=== PATIENT | female | born 1955 | race Caucasian/White ===

== ENCOUNTER 2018-06-15 01:24 | Outpatient (CLI) | payer BC, SELFPAY ==
[2018-06-15 09:19] LABS: Anion Gap 10.4 mmol/L (3-11); BUN 19 mg/dL (7-18); CO2 27.6 mmol/L (21.0-32.0); CREATININE 0.85 mg/dL (0.55-1.02); Calcium 9.1 mg/dL (8.5-10.1); Chloride 103 mmol/L (98-107); Cholesterol 146 mg/dL (50-200); Glucose 90 mg/dL (70-100); HDL Cholesterol 41 mg/dL (40-60); LDL CHOLESTEROL 71 mg/dL (<100); Potassium 3.6 mmol/L (3.5-5.1); Sodium 141 mmol/L (136-145); Triglyceride 215 mg/dL (30-150)
== END 2018-06-15 01:44 ==
PROVIDERS: PCP Family Medicine; Visit Provider Nurse Practitioner Family
DX: E78.5 Hyperlipidemia, unspecified (principal); I10 Essential (primary) hypertension; Z12.11 Encounter for screening for malignant neoplasm of colon
CPT/HCPCS: 36415; 80048; 80061; 83721

== ENCOUNTER 2018-10-18 08:58 | Emergency (ER) | payer BC, SELFPAY ==
[2018-10-18] VITALS (20 sets, daily range): BP systolic 101–136; BP diastolic 69–87; PULSE 58–80; RESP 11–24; TEMP 36.5–37.2; O2SAT 91–96
--- NOTE | 2018-10-18 09:32 | ED.GENADUL_ITS ---
Discharge Plan Disposition Patient Disposition: HOME Condition: Stable Discharge Details Chief Complaint: RespSymp Clinical Impression: Influenza A Primary Care Provider: Roge Baever ED Provider: Tina Melgoza Home Meds and New Rx's Prescriptions: Continued ibuprofen 200 MG capsule 200 mg PO HS PRNRF: 0 Atorvastatin Calcium 20 MG tablet 20 mg PO DAILY Qty: 90 RF: 3 lisinopril-hydrochlorothiazide 1 EACH tablet 1 tab PO DAILY Qty: 90 RF: 3 atenolol 50 MG tablet 50 mg PO DAILY Qty: 90 RF: 3 acetaminophen [Tylenol Extra Strength] 500 mg Tablet 500 mg PO PRN PRNRF: 0 Discharge Instructions Instructions: Albuterol (By mouth), Influenza (ED) Additional Instructions: Please return immediately to the emergency department if you develop any new or worsening symptoms or if you become otherwise concerned. It is extremely important that you make an appointment to be seen as soon as possible and follow-up this visit by your primary care doctor. Discharge Data Discharge Date/Time-TO BE ENTERED AT DEPARTURE: 10/18/18 12:41 Medical Decision Making Lulu Jernigan is a 63-year-old woman with history of hypertension, rheumatoid arthritis not currently being treated who presented to the emergency department with 1 week of cough, subjective fevers, headaches, and generalized body aches. On exam patient is well and nontoxic appearing. Cardiopulmonary exam is benign. Concern for influenza versus pneumonia versus metabolic/lyte derangement versus less likely occult ACS, other. Exam/history is not consistent with pulmonary embolism, sepsis, meningitis, subarachnoid hemorrhage, acute aortic etiology. Plan for EKG, screening labs, chest x-ray, flu swab, telemetry. Plan for 1 troponin given duration of symptoms, unchanged without chest pain or shortness of breath. Will monitor and reassess. Flu swab positive. Tamiflu not indicated at this time given duration of symptoms. Chest x-ray visualized and interpreted by myself in conjunction with radiology: No acute process. EKG shows sinus rhythm at 62 with normal axis, no acute ischemic process, nondiagnostic EKG. Prior to discharge patient noted to have O2 saturations 92-95% with good waveform. Patient continues to report no shortness of breath. Lungs are clear to auscultation. Plan for DuoNeb. O2 sat improved to 96% after DuoNeb. Plan for discharge with albuterol inhaler. I did have a lengthy discussion with the patient regarding return to emergency room precautions, home care, and importance of outpatient follow-up with her PCP. Patient verbalizes understanding of plan and is amenable. All questions were answered. Medical Records Medical records reviewed: Yes I reviewed the patient's medical records. Lab Data Lab results reviewed: Yes I reviewed the patient's lab results. 10/18/18 10:20 Nasopharynx Influenza Types A,B Antigen - Final Laboratory Tests Range/Units 10/18/18 10/18/18 10/18/18 10:25 10:40 10:40 WBC (4.4-10.8) k/cumm 3.52 L RBC (4.00-5.20) m/cumm 4.84 Hgb (12.0-15.5) g/dL 14.2 Hct (36.0-46.0) % 41.9 MCV (80-95) fL 86.6 MCH (27.0-33.0) pg 29.3 MCHC (32.0-36.0) g/dL 33.9 RDW (11.7-14.6) % 13.3 Plt Count (130-400) x1000/uL 163 MPV (8.0-11.0) fL 10.3 Immature Gran % 0.0 Neutrophils % 45.7 Lymphocytes % 41.5 Monocytes % 11.9 Eosinophils % 0.6 Basophils % 0.3 Absolute Neutrophils (1.2-6.7) k/cumm 1.61 Absolute Lymphocytes (1.2-3.4) k/cumm 1.46 Absolute Monocytes (0.11-0.7) k/cumm 0.42 Absolute Eosinophils (0.0-0.7) k/cumm 0.02 Absolute Basophils (0.0-0.2) k/cumm 0.01 Sodium (136-145) mmol/L 138 Potassium (3.5-5.1) mmol/L 3.3 L Chloride (98-107) mmol/L 101 Carbon Dioxide (21.0-32.0) mmol/L 29.0 Anion Gap (3-11) mmol/L 8.0 BUN (7-18) mg/dL 13 Creatinine (0.55-1.02) mg/dL 0.93 Estimated GFR/1.73 m2 (mL/min/1.73m2) >= 60.00 Glucose (70-100) mg/dL 99 Calcium (8.5-10.1) mg/dL 8.7 Total Bilirubin (0.2-1.0) mg/dL 0.4 AST (15-37) U/L 36 ALT (12-78) U/L 42 Alkaline Phosphatase (46-116) U/L 107 Troponin I (0.00-0.06) ng/mL < 0.02 Total Protein (6.4-8.2) g/dL 7.8 Albumin (3.4-5.0) g/dL 3.5 Urine Color (Yellow) Yellow Urine Clarity Clear Urine pH (5-8) 6.5 Ur Specific [place] (1.005-1.025) 1.020 Urine Protein (Negative) mg/dL Negative Urine Ketones (Negative) mg/dL Negative Urine Blood (Negative) Negative Urine Nitrite (Negative) Negative Urine Bilirubin (Negative) Negative Urine Urobilinogen (Up TO 0.2) EU/dL 0.2 Ur Leukocyte Esterase (Negative) Negative Urine Glucose (Negative) mg/dL Negative ECG Data Attestation: I personally reviewed and interpreted this ECG (s) as follows: Interpretation: See above HPI General Mode of arrival: ambulatory . Date/Time Provider Initiated Documentation: 10/18/18 09:32 . Limitations to Documentation: no limitations . Information obtained by: patient, RN notes reviewed and old records reviewed . HPI Narrative: Lulu Jernigan is a 63-year-old woman with history of hypertension, rheumatoid arthritis not currently on any medication for this presenting to the emergency department with cough, headache, generalized body aches. Patient reports that for 7 days she has had generalized body aches, nasal congestion, intermittent headaches, and cough. She has also had subjective fevers, although she has not measured her temperature at home and felt febrile when she came in today with normal temp at triage. She denies any focal pain, but does report generalized joint and muscle pain that is migratory and intermittent. She denies chest pain, abdominal pain. Headache was gradual in onset 7 days ago and has been coming and going. No current headache. She reports fatigue, denies vomiting or diarrhea. Has been eating and drinking as usual at home. Her who lives with her has had similar symptoms over the past few days. No recent travel. No rash. Related Data Home Medications Medication Instructions Recorded Confirmed ibuprofen 200 mg PO HS PRN tab-cap 05/16/14 10/18/18 atenolol 50 mg PO DAILY #90 tab 01/01/18 10/18/18 lisinopril-hydrochlorothiazide 1 tab PO DAILY #90 tab 01/01/18 10/18/18 acetaminophen [Tylenol Extra 500 mg PO PRN PRN 10/18/18 10/18/18 Strength] Previous Rx's Medication Instructions Recorded atenolol 50 mg PO DAILY #90 tab 01/01/18 lisinopril-hydrochlorothiazide 1 tab PO DAILY #90 tab 01/01/18 Allergies Allergy/AdvReac Type Severity Reaction Status Date / Time No Known Drug Allergies Allergy Unverified 10/18/18 09:11 General Stated Complaint: RespSymp MAHENDRA: 3 Review of Systems Review of Systems Constitutional: Reports fevers Eyes: denies eye pain ENT: denies facial pain, dental pain, sore throat Cardiovascular: denies chest pain, edema Respiratory: denies SOB, reports cough GI: denies abdominal pain, vomiting, diarrhea : denies flank pain MSK: denies back pain, neck pain, reports generalized arthralgias and myalgias Skin: denies rash Neuro: denies numbness, weakness, reports intermittent headaches PFSH Medical History Obesity (BMI 30-39.9) (Chronic 10/20/07) Hyperlipidemia, unspecified (Chronic 09/02/95) Essential hypertension (Chronic 11/30/97) Adult BMI > 30 Fibrocystic breast changes HLD (hyperlipidemia) HTN (hypertension) History of HPV infection Postmenopausal Social History Smoking/Tobacco Use Status: Former Tobacco Use Quit Date: 12/10/06 Alcohol Intake: current Alcohol Intake frequency: other Alcohol type: beer Substance use type: does not use Adopted: No Caregiver/Support person: No Foster care: No Number of Children: 1 current occupation: Emergency dispatcher Pets and animals: Yes Pets and animals: dog(s), bird(s) and farm animals Sexually active: No Current gender identity: female What type of physical activity do you participate in: walking Duration: 30-45 minutes/day Frequency: 3-4 times per week Seatbelt use: always Water heater temp set <120 deg: Yes Working smoke detector in home: Yes Fire extinguisher in home: Yes Carbon monox detector in home: Yes Firearms in home: Yes Firearms unloaded and locked: Yes Do you feel safe at home: Yes Do you feel safe in your relationship?: Yes Exam Narrative Exam Narrative: Constitutional: well and [id number], pleasant, conversing normally HENT: head atraumatic/normocephalic/normal inspection, mucous membranes moist Eyes: conjunctiva normal, sclera normal, pupils 3mm b/l Neck: no stridor, normal ROM, trachea midline Chest: normal inspection Resp: normal work of breathing, LCTAB Cardio: normal rate, normal rhythm, no murmur appreciated Back: normal inspection, no rash Skin: warm, dry, normal color, no rash Neuro: alert, not altered, grossly non-focal, normal tone Ext: no edema, no posterior calf tenderness to palpation Psych: normal mood, normal affect, normal behavior Course Vital Signs Temperature 36.5 C 10/18/18 09:05 Pulse 70 10/18/18 09:05 Respiratory Rate 16 10/18/18 09:05 Blood Pressure 132/80 10/18/18 09:05 Pulse Oximetry 94 L 10/18/18 09:05 Temperature 36.5 C 10/18/18 09:05 Temperature Source Skin 10/18/18 09:05 Pulse 70 10/18/18 09:05 Respiratory Rate 16 10/18/18 09:05 Respiratory Effort 10/18/18 09:16 Respiratory Depth Normal 10/18/18 09:16 Blood Pressure 132/80 10/18/18 09:05 Blood Pressure Position Sitting 10/18/18 09:05 Pulse Oximetry 94 L 10/18/18 09:05 Oxygen Delivery Method Room Air 10/18/18 09:05 Oxygen Flow Rate 0 10/18/18 09:05 Pain Level 5 10/18/18 09:05
[2018-10-18 10:32] LABS: Bilirubin Negative (Negative); Blood Negative (Negative); Clarity Clear; Glucose Negative (Negative); Ketones Negative (Negative); Leukocyte Esterase Negative (Negative); Nitrite Negative (Negative); Urobilinogen 0.2 EU/dL (Up TO 0.2); pH 6.5 (5-8)
[2018-10-18] MEDS: Normal Saline Flush 10 ML SYR IVP (10:40)
[2018-10-18 10:52] LABS: Absolute Basophil Count 0.01 k/cumm (0.0-0.2); Absolute Eosinophil Count 0.02 k/cumm (0.0-0.7); Absolute Lymphocyte Count 1.46 k/cumm (1.2-3.4); Absolute Monocyte Count 0.42 k/cumm (0.11-0.7); Absolute Neutrophil Count 1.61 k/cumm (1.2-6.7); Basophils % 0.3; Eosinophils % 0.6; HCT 41.9 % (36.0-46.0); HGB 14.2 g/dL (12.0-15.5); Lymphocytes % 41.5; Mean Corp. HGB Concentration 33.9 g/dL (32.0-36.0); Mean Corpuscular Hemoglobin 29.3 pg (27.0-33.0); Mean Corpuscular Volume 86.6 fL (80-95); Mean Platelet Volume 10.3 fL (8.0-11.0); Monocytes % 11.9; Neutrophils % 45.7; Platelet Count 163 x1000/uL (130-400); RBC 4.84 m/cumm (4.00-5.20); RBC Distribution Width 13.3 % (11.7-14.6); White Blood Cell Count 3.52 k/cumm (4.4-10.8)
--- NOTE | 2018-10-18 11:03 | DI.RAD_ITS ---
SYMPTOMS/DIAGNOSIS: COUGH CHEST X-RAY, PA AND LATERAL: Comparison is 09/29/1997. The heart is normal in size. The lungs are clear. The mediastinal structures and pleura appear intact. IMPRESSION: Normal chest.
[2018-10-18 11:20] LABS: ALT 42 U/L (12-78); AST 36 U/L (15-37); Albumin 3.5 g/dL (3.4-5.0); Alkaline Phosphatase 107 U/L (46-116); BUN 13 mg/dL (7-18); Bilirubin, Total 0.4 mg/dL (0.2-1.0); CREATININE 0.93 mg/dL (0.55-1.02); Calcium 8.7 mg/dL (8.5-10.1); Chloride 101 mmol/L (98-107); Glucose 99 mg/dL (70-100); Potassium 3.3 mmol/L (3.5-5.1); Sodium 138 mmol/L (136-145); Total Protein 7.8 g/dL (6.4-8.2)
[2018-10-18 11:24] LABS: Troponin I < 0.02 ng/mL (0.00-0.06)
[2018-10-18] MEDS: Albuterol/Ipratropium 3 ML UPD VIAL UPD (11:45)
[2018-10-18] MEDS: Albuterol HFA 8 GM 60 PUFF INH IH (12:40)
== END 2018-10-18 12:41 | disposition home or self-care (01) ==
PROVIDERS: Emergency Provider Student in an Organized Health Care Education/Training Program; PCP Family Medicine
DX: J10.1 Influenza due to other identified influenza virus with other respiratory manifestations (principal); I10 Essential (primary) hypertension
CPT/HCPCS: 36415; 80053; 87449; 93005; 94640; 99285; 71046; 81003; 84484; 85025; 93010; 99283; J7620

== ENCOUNTER 2019-01-25 16:42 | Outpatient (CLI) | payer BC, SELFPAY | END 2019-01-25 17:02 | PROVIDERS: PCP Nurse Practitioner Family; Visit Provider Nurse Practitioner Family | DX: Z12.11 Encounter for screening for malignant neoplasm of colon (principal) | CPT/HCPCS: 82274 ==

== ENCOUNTER 2019-12-16 11:51 | Outpatient (REF) | payer BC, SELFPAY ==
[2019-12-16 19:00] LABS: Anion Gap 8.3 mmol/L (3-11); BUN 21 mg/dL (7-18); CO2 30.7 mmol/L (21.0-32.0); CREATININE 0.88 mg/dL (0.55-1.02); Calcium 8.8 mg/dL (8.5-10.1); Calculated LDL 52 mg/dL (<100); Chloride 104 mmol/L (98-107); Cholesterol 130 mg/dL (<200); Glucose 82 mg/dL (74-106); HDL Cholesterol 50 mg/dL (40-60); Potassium 4.2 mmol/L (3.5-5.1); Sodium 143 mmol/L (136-145); Triglyceride 141 mg/dL (<150)
[2019-12-16 19:02] LABS: Hemoglobin A1C 5.7 % (3.8-5.6)
== END 2019-12-16 12:11 ==
LOC: LBN 11:51
PROVIDERS: PCP Nurse Practitioner Family; Visit Provider Nurse Practitioner Family
DX: I10 Essential (primary) hypertension (principal); E78.5 Hyperlipidemia, unspecified; E66.9 Obesity, unspecified; Z83.3 Family history of diabetes mellitus
CPT/HCPCS: 80048; 80061; 83036

== ENCOUNTER 2019-12-22 03:00 | Outpatient (CLI) | payer BC, SELFPAY ==
--- NOTE | 2019-12-22 14:26 | DI.DEXA_ITS ---
EXAM: XR DEXA BONE DENSITY W/WO SULEIMAN CLINICAL HISTORY: screening for osteoporosis,Z13.820 TECHNIQUE: COMPARISON: No exams were available for comparison FINDINGS: Lateral Spine Image: Unremarkable. No compression deformities identified. Left hip: Total T-Score: -1.4 Total Z-Score: -0.2 T- and Z-scores: Findings consistent with osteopenia. Lumbar Spine: Total T-Score: -1.0 Total Z-Score: 0.8 T- and Z-scores: Within normal limits. IMPRESSION: No evidence of osteoporosis.
--- NOTE | 2019-12-22 14:35 | DI.MAMMO_ITS ---
EXAM: MG MAMMO SCREENING CLINICAL HISTORY: screening,Z12.39 TECHNIQUE: Bilateral full field digital CC and MLO mammographic images were obtained with 3D tomosyn thesis and utilizing computer aided detection (CAD). COMPARISON: Available for comparison. FINDINGS: Masses/Architectural Distortion: None seen. Microcalcifications: No suspicious pleomorphic-type are seen. Skin Thickening/Nipple Retraction: None. IMPRESSION: 1. No significant interval change with no specific features of malignancy noted. 2. Unless there is more urgent need, screening mammography is recommended, as per [place] [employer] guidelines. BI-RADS Category 1 - Negative Breast Density - Category B - Scattered areas of fibroglandular density A negative radiographic report should not delay biopsy if a dominant or clinically suspicious mass is present. Up to ten percent of cancers are not identified on mammography. A negative report may reinforce clinical impression. Adenosis and dense breasts may obscure an underlying neoplasm. False positive reports average 6 to 10%. Patient will receive a letter notifying them of these results.
== END 2019-12-22 03:20 ==
PROVIDERS: PCP Nurse Practitioner Family; Visit Provider Nurse Practitioner Family
DX: Z12.31 Encounter for screening mammogram for malignant neoplasm of breast (principal); M85.88 Other specified disorders of bone density and structure, other site
CPT/HCPCS: 77063; 77067; 77080

== ENCOUNTER 2021-06-06 02:09 | Outpatient (CLI) | payer MEDICARE, SELFPAY ==
--- NOTE | 2021-06-06 09:00 | DI.MAMMO_ITS ---
Exam(s) MAMMO SCREENING EXAM: MAMMO SCREENING CLINICAL HISTORY: screening,Z12.39. TECHNIQUE: Bilateral full field digital CC and MLO mammographic images were obtained with 3D tomosyn thesis and utilizing computer aided detection (CAD). COMPARISON: Prior mammograms dating back to 2011, the most recent being December 2019. FINDINGS: There has been no significant change in appearance and distribution of the fibroglandular tissue whic h is mostly fatty. There are no new spiculated masses nor malignant appearing microcalcification groups. Few small benign-appearing nodules bilaterally are unchanged. Numerous benign-appearing microcalcifi cations in both breasts are also unchanged. There is no significant architectural distortion nor skin thickening-retraction. IMPRESSION: Stable benign findings. No radiographic evidence of malignancy. BI-RADS Category 2 - Benign Findings Breast Density - Category A - Almost entirely fatty Breast density Category C or D implies that the patient has dense breast tissue. Dense breast tissue can make it harder to find cancer on a mammogram. Dense breast tissue is also associated with an incr eased risk of breast cancer. This information about the result of the mammogram report was provided to the patient to raise their awareness. Use this report when you speak with the patient about their risks for breast cancer, which includes their family history. At that time, you may recommend additional screening tests (Ultrasoun d or MRI) as these tests may add significant information. A negative radiographic report should not delay biopsy if a dominant or clinically suspicious mass is present. Up to ten percent of cancers are not identified on mammography. A negative report may reinforce clinical impression. Adenosis and dense breasts may obscure an underlying neoplasm. False positive reports average 6 to 10%. Patient will receive a letter notifying them of these results.
== END 2021-06-06 02:29 ==
PROVIDERS: PCP Nurse Practitioner Family; Visit Provider Nurse Practitioner Family
DX: Z12.31 Encounter for screening mammogram for malignant neoplasm of breast (principal)
CPT/HCPCS: 77063; 77067

== ENCOUNTER 2021-06-06 02:53 | Outpatient (CLI) | payer MEDICARE, SELFPAY ==
[2021-06-06 14:28] LABS: Hemoglobin A1C 5.5 % (<5.7)
[2021-06-06 15:54] LABS: Anion Gap 11.9 mmol/L (3-11); BUN 17 mg/dL (7-18); CO2 27.1 mmol/L (21.0-32.0); CREATININE 0.9 mg/dL (0.55-1.02); Calcium 9.2 mg/dL (8.5-10.1); Calculated LDL 77 mg/dL (<100); Chloride 104 mmol/L (98-107); Cholesterol 162 mg/dL (<200); Glucose 82 mg/dL (74-106); HDL Cholesterol 50 mg/dL (40-60); Potassium 3.9 mmol/L (3.5-5.1); Sodium 143 mmol/L (136-145); Triglyceride 177 mg/dL (<150)
== END 2021-06-06 02:54 | disposition home or self-care (01) ==
LOC: LBO 02:53
PROVIDERS: PCP Nurse Practitioner Family; Visit Provider Nurse Practitioner Family
DX: I10 Essential (primary) hypertension (principal); R73.01 Impaired fasting glucose; E78.5 Hyperlipidemia, unspecified
CPT/HCPCS: 36415; 80048; 80061; 83036

== ENCOUNTER 2022-05-01 04:17 | Outpatient (CLI) | payer MEDICARE, SELFPAY ==
[2022-05-01 08:38] LABS: Hemoglobin A1C 5.5 % (<5.7)
[2022-05-01 09:14] LABS: Anion Gap 7.3 mmol/L (3-11); BUN 21 mg/dL (7-18); CO2 29.7 mmol/L (21.0-32.0); CREATININE 0.8 mg/dL (0.55-1.02); Calculated LDL 73 mg/dL (<100); Chloride 104 mmol/L (98-107); Cholesterol 147 mg/dL (<200); Estimated GFR 80.21 (mL/min/1.73m2); Glucose 90 mg/dL (74-106); HDL Cholesterol 53 mg/dL (40-60); Potassium 3.6 mmol/L (3.5-5.1); Sodium 141 mmol/L (136-145); Triglyceride 105 mg/dL (<150)
== END 2022-05-01 04:18 | disposition home or self-care (01) ==
LOC: LBO 04:18
PROVIDERS: PCP Nurse Practitioner Family; Visit Provider Nurse Practitioner Family
DX: E78.5 Hyperlipidemia, unspecified (principal); I10 Essential (primary) hypertension; R73.01 Impaired fasting glucose
CPT/HCPCS: 36415; 80048; 80061; 83036

== ENCOUNTER → 2022-06-12 02:37 | Outpatient (CLI) | payer MEDICARE, SELFPAY ==
--- NOTE | 2022-06-12 08:45 | DI.MAMMO_ITS ---
Exam(s) MAMMO SCREENING EXAM: MAMMO SCREENING 3B CLINICAL HISTORY: screening,Z12.39 TECHNIQUE: Bilateral full field digital CC and MLO mammographic images were obtained with 3D tomosyn thesis and utilizing computer aided detection (CAD). COMPARISON: Available for comparison. FINDINGS: Masses/Architectural Distortion: None seen. Microcalcifications: No suspicious pleomorphic-type are seen. Skin Thickening/Nipple Retraction: None. IMPRESSION: 1. No significant interval change with no specific features of malignancy noted. 2. Unless there is more urgent need, screening mammography is recommended, as per [place] [employer] guidelines. BI-RADS Category 1 - Negative Breast Density - Category B - Scattered areas of fibroglandular density Breast density category C or D implies that the patient has dense breast tissue. Dense breast tissue is very common and is not abnormal but dense breast tissue can make it harder to find cancer on a ma mmogram. Also, dense breast tissue may increase their breast cancer risk. This information about the result of the mammogram report was provided to the patient to raise their awareness. Use this report when you speak with the patient about their risks for breast cancer, which includes their family hist ory. At that time, you may recommend for more screening tests (Ultrasound or MRI) as they might be us eful based on their risk. A negative radiographic report should not delay biopsy if a dominant or clinically suspicious mass is present. Up to ten percent of cancers are not identified on mammography. A negative report may reinforce clinical impression. Adenosis and dense breasts may obscure an underlying neoplasm. False positive reports average 6 to 10%. Patient will receive a letter notifying them of these results.
== END ==
PROVIDERS: PCP Nurse Practitioner Family; Visit Provider Nurse Practitioner Family
DX: Z12.31 Encounter for screening mammogram for malignant neoplasm of breast (principal)
CPT/HCPCS: 77063; 77067

== ENCOUNTER 2023-05-25 03:44 | Outpatient (CLI) | payer MEDICARE, SELFPAY ==
[2023-05-25 09:02] LABS: Anion Gap 7.8 mmol/L (3-11); BUN 18 mg/dL (7-18); CO2 28.2 mmol/L (21.0-32.0); CREATININE 0.9 mg/dL (0.55-1.02); Calcium 9.5 mg/dL (8.5-10.1); Calculated LDL 64 mg/dL (<100); Chloride 105 mmol/L (98-107); Cholesterol 139 mg/dL (<200); Glucose 96 mg/dL (74-106); HDL Cholesterol 52 mg/dL (40-60); Potassium 3.8 mmol/L (3.5-5.1); Sodium 141 mmol/L (136-145); Triglyceride 119 mg/dL (<150)
== END 2023-05-25 03:45 | disposition home or self-care (01) ==
PROVIDERS: Absent Provider Nurse Practitioner Family; PCP Nurse Practitioner Family; Visit Provider Nurse Practitioner Family
DX: I10 Essential (primary) hypertension (principal); Z13.1 Encounter for screening for diabetes mellitus; E78.5 Hyperlipidemia, unspecified
CPT/HCPCS: 36415; 80048; 80061

== ENCOUNTER → 2023-06-19 01:34 | Outpatient (CLI) | payer MEDICARE, SELFPAY ==
--- NOTE | 2023-06-19 13:10 | DI.MAMMO_ITS ---
Exam(s) MAMMO SCREENING EXAM: MAMMO SCREENING CLINICAL HISTORY: screening,z12.39. TECHNIQUE: Bilateral full field digital CC and MLO mammographic images were obtained with 3D tomosyn thesis and utilizing computer aided detection (CAD). COMPARISON: Prior mammograms were reviewed. FINDINGS: There has been no significant change in the appearance and distribution of the fibroglandular tissue. Scattered benign-appearing microcalcifications are again noted in both breasts. There are no new spiculated masses nor malignant appearing microcalcification groups. There is no significant architectural distortion nor skin thickening-retraction. IMPRESSION: No radiographic evidence of malignancy. BI-RADS Category 1 - Negative Breast Density - Category A - Almost entirely fatty Breast density Category C or D implies that the patient has dense breast tissue. Dense breast tissue can make it harder to find cancer on a mammogram. Dense breast tissue is also associated with an incr eased risk of breast cancer. This information about the result of the mammogram report was provided to the patient to raise their awareness. Use this report when you speak with the patient about their risks for breast cancer, which includes their family history. At that time, you may recommend additional screening tests (Ultrasoun d or MRI) as these tests may add significant information. A negative radiographic report should not delay biopsy if a dominant or clinically suspicious mass is present. Up to ten percent of cancers are not identified on mammography. A negative report may reinforce clinical impression. Adenosis and dense breasts may obscure an underlying neoplasm. False positive reports average 6 to 10%. Patient will receive a letter notifying them of these results.
== END ==
PROVIDERS: PCP Nurse Practitioner Family; Visit Provider Nurse Practitioner
DX: Z12.31 Encounter for screening mammogram for malignant neoplasm of breast (principal)
CPT/HCPCS: 77063; 77067

== ENCOUNTER 2024-06-23 02:25 | Outpatient (CLI) | payer MEDICARE, SELFPAY ==
--- NOTE | 2024-06-23 13:16 | DI.MAMMO_ITS ---
Exam(s) MAMMO SCREENING EXAM: MAMMO SCREENING CLINICAL HISTORY: screening,Z12.39. TECHNIQUE: Bilateral full field digital CC and MLO mammographic images were obtained with 3D tomosyn thesis and utilizing computer aided detection (CAD). COMPARISON: Prior mammograms were reviewed. Significant family history. Both mother and sister been diagnosed with breast cancer. FINDINGS: There has been no significant change in the appearance and distribution of the fibroglandular tissue. Scattered benign microcalcifications are again noted both breasts. There are no new spiculated masses nor malignant appearing microcalcification groups. There is no significant architectural distortion nor skin thickening-retraction. IMPRESSION: No radiographic evidence of malignancy. BI-RADS Category 1 - Negative Breast Density - Category B - Scattered areas of fibroglandular density Breast density Category C or D implies that the patient has dense breast tissue. Dense breast tissue can make it harder to find cancer on a mammogram. Dense breast tissue is also associated with an incr eased risk of breast cancer. This information about the result of the mammogram report was provided to the patient to raise their awareness. Use this report when you speak with the patient about their risks for breast cancer, which includes their family history. At that time, you may recommend additional screening tests (Ultrasoun d or MRI) as these tests may add significant information. A negative radiographic report should not delay biopsy if a dominant or clinically suspicious mass is present. Up to ten percent of cancers are not identified on mammography. A negative report may reinforce clinical impression. Adenosis and dense breasts may obscure an underlying neoplasm. False positive reports average 6 to 10%. Patient will receive a letter notifying them of these results.
== END 2024-06-23 02:45 ==
LOC: DI 02:25
PROVIDERS: PCP Nurse Practitioner; Visit Provider Nurse Practitioner
DX: Z12.31 Encounter for screening mammogram for malignant neoplasm of breast (principal); R92.323 Mammographic fibroglandular density, bilateral breasts
CPT/HCPCS: 77063; 77067

== ENCOUNTER 2024-11-15 03:47 | Outpatient (CLI) | payer MEDICARE, SELFPAY ==
[2024-11-15 08:38] LABS: Abs Immature Grans 0.02 10^3/uL (0.0-0.06); Absolute Basophil Count 0.05 10^3/uL (0.0-0.2); Absolute Lymphocyte Count 2.67 10^3/uL (1.2-3.4); Absolute Monocyte Count 0.62 10^3/uL (0.1-0.8); Absolute Neutrophil Count 2.92 10^3/uL (1.2-6.7); Basophils % 0.8 %; Eosinophils % 3.1 %; HCT 43.1 % (36.0-46.0); HGB 13.7 g/dL (11.2-15.7); Immature Grans % 0.3 %; Lymphocytes % 41.2 %; MCH 27.7 pg (27.0-33.0); MCHC 31.8 % (32.0-36.0); MCV 87 fL (80-95); MPV 10.3 fL (8.0-11.0); Monocytes % 9.6 %; Platelet Count 211 10^3/uL (130-400); RBC 4.95 10^6/uL (3.93-5.22); RDW-SD 40.8 fL; WBC 6.48 10^3/uL (4.4-10.8)
[2024-11-15 09:03] LABS: ALT 29 U/L (14-59); AST 19 U/L (15-37); Albumin 3.6 g/dL (3.4-5.0); Alkaline Phosphatase 142 U/L (46-116); Anion Gap 8.5 mmol/L (3-11); BUN 26 mg/dL (7-18); Bilirubin, Total 0.7 mg/dL (0.2-1.0); CO2 28.5 mmol/L (21.0-32.0); CREATININE 0.9 mg/dL (0.55-1.02); Calcium 9.2 mg/dL (8.5-10.1); Calculated LDL 58 mg/dL (<100); Chloride 107 mmol/L (98-107); Cholesterol 138 mg/dL (<200); Estimated GFR 68.77 (mL/min/1.73m2); Glucose 88 mg/dL (74-106); HDL Cholesterol 56 mg/dL (>or=50); Potassium 3.7 mmol/L (3.5-5.1); Sodium 144 mmol/L (136-145); Total Protein 7.6 g/dL (6.4-8.2); Triglyceride 121 mg/dL (<150)
[2024-11-15 09:17] LABS: Hemoglobin A1C 5.2 % (<5.7)
== END 2024-11-15 03:48 | disposition home or self-care (01) ==
LOC: LBO 03:47
PROVIDERS: PCP Nurse Practitioner; Referring Provider Nurse Practitioner; Visit Provider Nurse Practitioner
DX: E78.5 Hyperlipidemia, unspecified (principal); E66.9 Obesity, unspecified; I10 Essential (primary) hypertension; R73.01 Impaired fasting glucose
CPT/HCPCS: 36415; 80053; 80061; 83036; 85025

== ENCOUNTER → 2025-06-16 03:04 | Outpatient (CLI) | payer MEDICARE, SELFPAY ==
--- NOTE | 2025-06-16 14:17 | DI.DEXA_ITS ---
Exam(s) XR DEXA BONE DENSITY W/WO SULEIMAN EXAM: XR DEXA BONE DENSITY W/WO SULEIMAN CLINICAL HISTORY: 4 year follow up,OSTEOPENIA LT HIP,M85.852 TECHNIQUE: Holo[employer]act[employer] Horizon C densitometer analysis of left hip, lumbar spine and left forearm. Lateral survey image of the thoracic and lumbar spine. COMPARISON: CR XR DEXA BONE DENSITY W/WO SULEIMAN from 12/22/2019 FINDINGS: Lateral view of the thoracic and lumbar spine shows no evidence of compression fractures. Bone mineral density measurements of the lumbar spine correspond to a total T- score of -0.9, in the normal range. This represents a 2 percent increase from 2020. Bone mineral density measurements of the left hip correspond to a total T-score of -1.9, in the osteopenic range. This represents an 8 percent decrease from 2020. The femoral neck T-score is -1.6. Theleft forearm bone mineral density measurements correspond to a T-score of the distal 3rd of -0.8, in the normal range. This represents a 3.7 percent decrease from 2020. IMPRESSION: Normal bone mineral density of the spine and forearm. Osteopenia of the hip.
== END ==
LOC: DI 03:04
DX: M85.852 Other specified disorders of bone density and structure, left thigh (principal)
CPT/HCPCS: 77080

== ENCOUNTER → 2025-06-26 02:20 | Outpatient (CLI) | payer MEDICARE, SELFPAY ==
--- NOTE | 2025-06-26 08:15 | DI.MAMMO_ITS ---
Exam(s) MAMMO SCREENING EXAM: MAMMO SCREENING CLINICAL HISTORY: screening,z12.39 TECHNIQUE: Bilateral full field digital CC and MLO mammographic images were obtained with 3D tomosynthesis and utilizing computer aided detection (CAD). COMPARISON: Comparison is made with prior examinations. FINDINGS: Masses/Architectural Distortion: No suspicious masses or areas of architectural distortion are present. Microcalcifications: No suspicious pleomorphic-type are seen. There are stable benign type calcifications seen in both breasts. Skin Thickening/Nipple Retraction: None. IMPRESSION: 1. No significant interval change with no specific features of malignancy noted. 2. Unless there is more urgent need, screening mammography is recommended, as per [place] [employer] guidelines. BI-RADS Category 1 - Negative Breast Density - Category B - There are scattered areas of fibroglandular density. Breast density Category C or D implies that the patient has dense breast tissue. Dense breast tissue can make it harder to find cancer on a mammogram. Dense breast tissue is also associated with an increased risk of breast cancer. This information about the result of the mammogram report was provided to the patient to raise their awareness. Use this report when you speak with the patient about their risks for breast cancer, which includes their family history. At that time, you may recommend additional screening tests (Ultrasound or MRI) as these tests may add significant information. A negative radiographic report should not delay biopsy if a dominant or clinically suspicious mass is present. Up to ten percent of cancers are not identified on mammography. A negative report may reinforce clinical impression. Adenosis and dense breasts may obscure an underlying neoplasm. False positive reports average 6 to 10%. Patient will receive a letter notifying them of these results.
== END ==
DX: Z12.31 Encounter for screening mammogram for malignant neoplasm of breast (principal)
CPT/HCPCS: 77063; 77067